=== PATIENT | male | born 1995 | race Caucasian/White ===

== ENCOUNTER 2018-05-11 11:06 | Emergency (ER) | payer BC ==
[2018-05-11 11:40] VITALS: BP 114/79
[2018-05-11] MEDS ORDERED: Ondansetron ODT TAB* 4 MG PO ONE (11:50)
--- NOTE | 2018-05-11 11:50 | UC ---
UC General HPI - HPI Summary HPI Summary: Coughed up blood last pm while having a cough with congestion and wheezing. Hx asthma, now better with rescue inhaler. episodic diarrhea for 3 weeks, on for a few days then resolves for a few days. no blood or mucous. no travel hx, IBD, sick contacts or antibiotic use. gets sharp crampy abdominal pains before the watery diarrhea. resolves with the diarrhea. last pm had n/v as well. - History of Current Complaint Chief Complaint: UCGI Stated Complaint: VOMITING/STOMACH COMPLAINT Time Seen by Provider: 05/11/18 11:30 Hx Obtained From: Patient Pain Intensity: 7 Aggravating: nothing Alleviating: nothing Associated Signs & Symptoms: Positive: Abdominal Pain, Cough, Diarrhea, Nausea, Vomiting. Negative: Fever - Allergy/Home Medications Allergies/Adverse Reactions: Allergies Allergy/AdvReac Type Severity Reaction Status Date / Time No Known Allergies Allergy Verified 05/11/18 11:38 Home Medications: Home Medications Albuterol HFA INHALER* [Ventolin HFA Inhaler*] 1 puff INH Q4H PRN 05/11/18 [ History Confirmed 05/11/18] Albuterol inh POWDER (NF) [Proair Respiclick] 1 puff INH DAILY 05/11/18 [ History Confirmed 05/11/18] Cetirizine* [ZyrTEC 10 MG TAB*] 10 mg PO DAILY 05/11/18 [History Confirmed 05/11] PMH/Surg Hx/FS Hx/Imm Hx - Additional Past Medical History Additional PMH: allergies, chronic joint pain Respiratory History: Asthma - Surgical History Surgical History: Yes Surgery Procedure, Year, and Place: DOUBLE HERNIA REPAIR - Family History Known Family History: Positive: None - Social History Occupation: Employed Full-time Alcohol Use: Occasionally Substance Use Type: None Smoking Status (MU): Never Smoked Tobacco - Immunization History Most Recent Influenza Vaccination: NONE FOR 2014 Review of Systems Constitutional: Negative Skin: Negative Eyes: Negative ENT: Negative Respiratory: Cough Cardiovascular: Negative Gastrointestinal: Abdominal Pain, Vomiting, Diarrhea, Nausea Genitourinary: Negative Motor: Negative Neurovascular: Negative Musculoskeletal: Negative Neurological: Negative Psychological: Negative Is Patient Immunocompromised?: No All Other Systems Reviewed And Are Negative: Yes Physical Exam Triage Information Reviewed: Yes Appearance: Well-Appearing Vital Signs: Initial Vital Signs Temp 98.7 F 05/11/18 11:33 Pulse 77 05/11/18 11:33 Resp 15 05/11/18 11:33 BP 114/79 05/11/18 11:33 Pulse Ox 100 05/11/18 11:33 Vital Signs Reviewed: Yes Eyes: Positive: Conjunctiva Clear ENT: Positive: Pharynx normal, TMs normal. Negative: Nasal congestion, Nasal drainage Neck: Positive: Supple, Nontender, No Lymphadenopathy Respiratory: Positive: Lungs clear, Normal breath sounds Cardiovascular: Positive: RRR, No Murmur Abdomen Description: Positive: Nontender, No Organomegaly, Soft. Negative: Bruit, CVA Tenderness (R), CVA Tenderness (L), Distended, Guarding Bowel Sounds: Positive: Present Musculoskeletal: Positive: ROM Intact, No Edema Neurological: Positive: Alert Psychological: Positive: Age Appropriate Behavior Skin Exam: Normal Skin: Negative: rashes Diagnostics - Radiology No standard instances Radiology Interpretation Completed By: Radiologist - CXR=NO ACTIVE CARDIOPULMONARY DISEASE. Course/Dx - Course Course Of Treatment: non toxic, no acute abdomen. no indication for ER transfer. No concern for travelers diarrhea or c-diff colitis. No hx of IBD; however, given the episodic diarrhea x 3 weeks, pt is going to require close f/ u with his pcp for recheck and ongoing evaluation to which he agrees. CXR= unremarkable, no recurrent blood in sputum and upon additional hx pt not certain blood was from his lungs. No concern for TB. - Differential Dx - Multi-Symptom Provider Diagnoses: Vomiting. Diarrhea. Hemoptysis Discharge - Sign-Out/Discharge Documenting (check all that apply): Patient Departure All imaging exams completed and their final reports reviewed: No Studies - Discharge Plan Condition: Stable Disposition: HOME Patient Education Materials: Hemoptysis (ED), Acute Nausea and Vomiting (ED), Acute Diarrhea (ED) Referrals: Birdie Key MD [Primary Care Provider] - As Soon As Possible - Billing Disposition and Condition Condition: STABLE Disposition: Home
--- NOTE | 2018-05-11 12:18 | RAD ---
HISTORY: cough, coughed up blood COMPARISONS: January 18, 2008 VIEWS: 4: Frontal dual-energy and lateral views of the chest. FINDINGS: CARDIOMEDIASTINAL SILHOUETTE: The cardiomediastinal silhouette is normal. THONY: The thony are normal. PLEURA: The costophrenic angles are sharp. No pleural abnormalities are noted. LUNG PARENCHYMA: The lungs are clear. ABDOMEN: The upper abdomen is clear. There is no subphrenic gas. BONES AND SOFT TISSUES: No bone or soft tissue abnormalities are noted. OTHER: None. IMPRESSION: NO ACTIVE CARDIOPULMONARY DISEASE.
== END 2018-05-11 12:46 | disposition home or self-care (01) ==
LOC: UCCORT 11:06
DX: R04.2 Hemoptysis (principal); R11.2 Nausea with vomiting, unspecified; R19.7 Diarrhea, unspecified; J45.909 Unspecified asthma, uncomplicated
CPT/HCPCS: 71046; 99211; A9270-GY; G0463

== ENCOUNTER 2018-06-09 17:40 | Emergency (ER) | payer BC ==
[2018-06-09 18:49] VITALS: BP 132/84
--- NOTE | 2018-06-09 19:21 | UC ---
Hand/Wrist HPI - HPI Summary HPI Summary: Patient presents complaining of a bump to the back of his left wrist for approximately the past 7 years. He states that the discomfort at the area comes and goes. He demonstrates when he flexes the wrist it is most uncomfortable and the bump is most noticeable. He states that he had followed up with an individual years ago was diagnosed with a ganglionic cyst but was unable to schedule an appointment to get it removed. He states that 2 years ago he accidentally bumped the area and believes that he ruptured it and it seemed much improved; however, over the past 6 months seems to have recurred. - History Of Current Complaint Chief Complaint: UCGeneralIllness Stated Complaint: LEFT WRIST - POSSIBLE CYST Time Seen by Provider: 06/09/18 18:48 Hx Obtained From: Patient Pain Intensity: 1 - Allergies/Home Medications Allergies/Adverse Reactions: Allergies Allergy/AdvReac Type Severity Reaction Status Date / Time No Known Allergies Allergy Verified 06/09/18 18:37 Home Medications: Home Medications Fluticasone DISKUS 100 MCG(NF) [Flovent Diskus 100 MCG(NF)] 1 puff DAILY [History Confirmed 06/09/18] PMH/Surg Hx/FS Hx/Imm Hx - Additional Past Medical History Additional PMH: arthralgia Respiratory History: Asthma - Surgical History Surgical History: Yes Surgery Procedure, Year, and Place: DOUBLE HERNIA REPAIR - Family History Known Family History: Positive: None - Social History Occupation: Employed Full-time Alcohol Use: Occasionally Substance Use Type: None Smoking Status (MU): Never Smoked Tobacco - Immunization History Most Recent Influenza Vaccination: NONE FOR 2014 Most Recent Tetanus Shot: UTD Vaccination Up to Date: Yes Review of Systems Constitutional: Negative Skin: Negative Eyes: Negative ENT: Negative Respiratory: Negative Cardiovascular: Negative Gastrointestinal: Negative Genitourinary: Negative Motor: Negative Neurovascular: Negative Musculoskeletal: Other: - pain L wrist Neurological: Negative Psychological: Negative Is Patient Immunocompromised?: No All Other Systems Reviewed And Are Negative: Yes Physical Exam Triage Information Reviewed: Yes Appearance: Well-Appearing Vital Signs: Initial Vital Signs Temp 98.2 F 06/09/18 18:38 Pulse 77 06/09/18 18:38 Resp 16 06/09/18 18:38 BP 132/84 06/09/18 18:38 Pulse Ox 100 06/09/18 18:38 Vital Signs Reviewed: Yes Eyes: Positive: Conjunctiva Clear ENT: Positive: Normal ENT inspection Neck: Positive: Supple, Nontender Respiratory: Positive: Lungs clear, Normal breath sounds Cardiovascular: Positive: RRR, No Murmur Abdomen Description: Positive: Nontender, No Organomegaly, Soft Bowel Sounds: Positive: Present Musculoskeletal: Positive: Other: - LUE: Shoulder and elbow without deformity or tenderness. Inspection of the wrist in the neutral position shows no gross deformity swelling or discoloration; however, when patient flexes at the wrist there is an area of swelling to the dorsal central wrist. The area is tender drip to palpation but feels firm and noncystic. The rest of the wrist is nontender. The hand is nontender and has full sensorivascular motor function. Neurological: Positive: Alert Psychological: Positive: Age Appropriate Behavior Skin Exam: Normal Diagnostics - Radiology No standard instances Xray Interpretation: No Acute Changes - wet read L wrist Hand/Wrist Course/Dx - Course Course Of Treatment: no concern for acute fx. given duration of discomfort, will refer to hand. - Differential Dx/Diagnosis Provider Diagnoses: L dorsal wrist swelling/pain Discharge - Sign-Out/Discharge Documenting (check all that apply): Patient Departure All imaging exams completed and their final reports reviewed: No - Discharge Plan Condition: Stable Disposition: HOME Patient Education Materials: Ganglion Cysts (ED) Referrals: Zoraida Schmidt MD [Medical Doctor] - As Soon As Possible Additional Instructions: DIAGNOSIS: LEFT DORSAL WRIST PAIN/SWELLING. WEAR THE SPLINT FOR COMFORT. - Billing Disposition and Condition Condition: STABLE Disposition: Home
--- NOTE | 2018-06-10 07:17 | RAD ---
INDICATION: Dorsal LEFT wrist pain and swelling. Possible cyst. COMPARISON: No relevant prior exams available on the [facility]. TECHNIQUE: AP, lateral, and oblique views LEFT wrist. REPORT: Mild diastases and dorsal subluxation at the distal radioulnar joint is concerning for potential injury involving the triangular fibrocartilage. No cortical disruption or suspicious trabecular irregularity to suggest fracture. Unremarkable soft tissue contours. IMPRESSION: #. Potential abnormality involving the triangular fibrocartilage complex given noted malalignment at the distal radioulnar joint. Correlate with clinical assessment and consider MRI for further evaluation if deemed appropriate. R2
--- NOTE | 2018-06-10 08:12 | UC ---
- EKG/XRAY/CT Xray Comments: wet read did not note possible TFCC injury-pt referred to hand specialist Discharge - Sign-Out/Discharge Documenting (check all that apply): Post-Discharge Follow Up All imaging exams completed and their final reports reviewed: Yes - Discharge Plan Condition: Stable Disposition: HOME Patient Education Materials: Ganglion Cysts (ED) Referrals: Zoraida Schmidt MD [Medical Doctor] - As Soon As Possible Additional Instructions: DIAGNOSIS: LEFT DORSAL WRIST PAIN/SWELLING. WEAR THE SPLINT FOR COMFORT. - Billing Disposition and Condition Condition: STABLE Disposition: Home
== END 2018-06-09 20:08 | disposition home or self-care (01) ==
LOC: UCCORT 17:40
DX: M25.432 Effusion, left wrist (principal); M25.532 Pain in left wrist
CPT/HCPCS: 99212; G0463

== ENCOUNTER 2018-06-25 08:12 | Day surgery (SDC) | payer BC ==
--- NOTE | 2018-06-21 12:23 | HP ---
AMENDED REPORT NOW INCLUDES COSIGNER DESIGNATION PREOPERATIVE HISTORY AND PHYSICAL: DATE OF SURGERY/ADMISSION: 06/25/18 DATE OF OFFICE VISIT/ENCOUNTER: 06/17/18 ATTENDING SURGEON: Zoraida Schmidt MD* (dictated by ARNULFO Murphy). PROCEDURE: Ganglion cyst excision, left wrist. CHIEF COMPLAINT: Cyst, left wrist. HISTORY OF PRESENT ILLNESS: This is a 22-year-old male who complains of a lump on the dorsal aspect of his left wrist. It has been present for over 8 years. Several years ago, he accidentally hit it on something and it ruptured and was not bothersome at all until about 6 months ago when it returned, it is now quite painful for him. He had x-rays taken and there was no evidence of bony injury. He has been wearing a brace which is a little bit helpful. He denies any associated numbness or tingling. He would like to have the cyst surgically excised. PAST MEDICAL HISTORY: 1. Asthma. 2. Seasonal allergies. PAST SURGICAL HISTORY: Double hernia repair at age 7 months. CURRENT MEDICATIONS: 1. OTC allergy med p.r.n. 2. Symbicort. 3. Ventolin inhaler 2 puffs 4 times a day p.r.n. ALLERGIES: No known drug allergies. FAMILY MEDICAL HISTORY: Noncontributory. 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 He denies tobacco use and recreational drug use. He does drink alcohol on rare occasion. REVIEW OF SYSTEMS: Negative for general, cephalic, cardiovascular, respiratory , GI, , other musculoskeletal, integumentary, endocrine, neurologic, and hematologic symptoms. Infectious Disease is negative MRSA, hepatitis C, HIV. PHYSICAL EXAMINATION GENERAL: Well-developed, well-nourished 22-year-old male, in no acute distress. VITAL SIGNS: Height 6 feet 10 inches, weight 210 pounds. Blood pressure 118/ 74. HEENT: Normocephalic, atraumatic. Pupils are equal, round, and reactive to light and accommodation. Extraocular movements are intact. Throat is clear. NECK: Supple. No palpable lymph nodes. PULMONARY: Lungs are clear to auscultation bilaterally. No wheezes, rales, or rhonchi. CARDIOVASCULAR: Regular rate and rhythm. S1 and S2. No murmurs, rubs, or gallops. No edema. ABDOMEN: Positive bowel sounds. Soft, nontender. MUSCULOSKELETAL: On exam of his left wrist, he has a tender mass on the dorsal aspect of the wrist that is firm, subcutaneous, and mobile. It is approximately about 1 cm in diameter. He has decreased range of motion in the left wrist compared to the right in flexion and extension secondary to pain. NEUROLOGIC: Alert and oriented x3. Cranial nerves II through XII are intact. Sensation is intact to light touch. Neurovascular function is intact. SKIN: Intact. IMAGING STUDIES: X-rays AP, lateral, and oblique of the left wrist are unremarkable. IMPRESSION: Left wrist dorsal ganglion cyst. PLAN: The patient is scheduled to undergo a ganglion cyst excision left wrist with Dr. Schmidt on 06/25/18. He will return to the office 10 days postop for followup and suture removal. A prescription for Ultracet was e-scribed to the patient's pharmacy for postoperative pain management. ARNULFO MURPHY [id number]/[facility] #: [id number] BETTE
[~2018-06-25 08:12] MED LIST: Buffered Lidocaine 0.9% SYRIN* 5 ML/SYR SYRINGE INTRADERM ONE; Famotidine IV* 10 MG/ML 2 ML (20 mg) IV ONE
[2018-06-25] MEDS ORDERED: Famotidine IV* 10 MG/ML 2 ML (20 mg) ONE (08:43)
[2018-06-25] MEDS ORDERED: Naloxone* 0.4 MG/ML 1 ML VIAL IV PRN (09:03)
[2018-06-25] MEDS ORDERED: Acetaminophen TAB* 325 MG PO PRN (09:03)
[2018-06-25] MEDS ORDERED: DiMENhydriNATE IV* 50 MG/ML VIAL IV PUSH PRN (09:03)
[2018-06-25] MEDS ORDERED: Midazolam* 1 MG/ML 5 ML VIAL (5 MG) ONE (09:36)
[2018-06-25] MEDS ORDERED: fentaNYL* 50 MCG/ML 2 ML VIAL (100 MCG VIAL) ONE (09:36)
[2018-06-25] MEDS ORDERED: Lidocaine 2% PF * 5 ML VIAL ONE (09:37)
[2018-06-25] MEDS ORDERED: Ketorolac INJ* 30 MG/ML 1 ML VIAL ONE (09:37)
[2018-06-25] MEDS ORDERED: Ondansetron INJ* 2 MG/ML VIAL ONE (09:37)
[2018-06-25] MEDS ORDERED: Propofol* 10 MG/ML 20 ML BTL IV PUSH ONE (09:37)
[2018-06-25] MEDS ORDERED: Lidocaine 1% INJ* 10 MG/ML 30 ML SDV ONE (10:02)
[2018-06-25 11:19] VITALS: BP 107/76
--- NOTE | 2018-06-26 03:47 | OP ---
DATE OF OPERATION: 06/25/18 [facility] DATE OF : 89 SURGEON: Dr. Schmidt. RELAY DISPATCHER: ARNULFO Murphy ANESTHESIA: Local MAC. PRE-OP DIAGNOSIS: Left wrist ganglion. POST-OP DIAGNOSIS: Left wrist ganglion. OPERATIVE PROCEDURE: Removal of dorsal ganglion, left wrist. ESTIMATED BLOOD LOSS: Zero. TOURNIQUET TIME: Approximately 15 minutes. INDICATIONS FOR PROCEDURE: James is a 22-year-old male with a painful mass on the dorsal aspect of his left wrist. He presents for removal. DESCRIPTION OF PROCEDURE: The patient was brought to the operating room, was given a sedation anesthetic and a local infiltration of 10 cc of 1% plain lidocaine overlying the mass on his left wrist. Skin of his left upper extremity was prepped and draped in the usual sterile fashion. The hand and forearm were exsanguinated and the tourniquet elevated to 250 mmHg. A transverse incision was made centered over the mass. We dissected bluntly through the subcutaneous tissue down to the ganglion cyst. The extensor tendons were retracted by the surgical coder, Anne-Marie Nuñez, and then the wrist ganglion was carefully dissected down to the wrist joint capsule and removed with a portion of the wrist capsule. The stalk was evident emanating from the scapholunate ligament. The edges of the capsule and the superficial portion of the scapholunate ligament were cauterized with a Bovie. The wounds was irrigated, and the skin edges were reapproximated with 4-0 nylon suture. The wound was dressed with Xeroform, 4x4, Webril, and an Damon wrap. The patient tolerated the procedure well and was brought to the recovery room in good condition. [id number]/[facility] #: [id number] [facility]
== END 2018-06-25 11:36 | disposition home or self-care (01) ==
LOC: OREAST 08:12
PROVIDERS: ATTEND Orthopaedic Surgery
DX: M67.432 Ganglion, left wrist (principal); J45.909 Unspecified asthma, uncomplicated; J30.2 Other seasonal allergic rhinitis; F41.8 Other specified anxiety disorders
CPT/HCPCS: 88304; J1885; J2250; J2405; J2704; J3010

== ENCOUNTER 2019-02-08 18:58 | Emergency (ER) | payer BC ==
[2019-02-08 19:24] VITALS: BP 165/97
--- NOTE | 2019-02-08 19:42 | UC ---
UC General HPI - HPI Summary HPI Summary: 23-year-old male comes in with a chief complaint of sudden onset left-sided facial pain. Started suddenly about an hour ago. Patient is having a hard time describing where the pain is. He was not chewing when it started. He does not believe it's tooth but he can't tell for sure. Pain is severe. Pain is so bad making him nauseous. He's taken acetaminophen 1 g and also ibuprofen 800 mg without any relief. No weakness or numbness. Has not had this kind of pain in the past. - History of Current Complaint Chief Complaint: UCGeneralIllness Stated Complaint: FACIAL PAIN Time Seen by Provider: 02/08/19 19:31 Pain Intensity: 10 - Allergy/Home Medications Allergies/Adverse Reactions: Allergies Allergy/AdvReac Type Severity Reaction Status Date / Time banana Allergy THROAT AND Verified 02/08/19 19:25 TONGUE SWELL Home Medications: Home Medications Acetaminophen [Acetaminophen Extra Strength] 500 mg PO Q4HR PRN 02/08/19 [ History Confirmed 02/08/19] PMH/Surg Hx/FS Hx/Imm Hx Previously Healthy: Yes - Surgical History Surgical History: Yes Surgery Procedure, Year, and Place: DOUBLE HERNIA REPAIR-AGE 5 MONTHS. LOCAL ANESTHESIA- WISDOM TEETH, left wrist surgery- 06/2018 - Family History Known Family History: Positive: None - Social History Alcohol Use: Rare Substance Use Type: None Smoking Status (MU): Never Smoked Tobacco Have You Smoked in the Last Year: No - Immunization History Most Recent Influenza Vaccination: NONE FOR 2014 Most Recent Tetanus Shot: UTD Vaccination Up to Date: Yes Review of Systems All Other Systems Reviewed And Are Negative: Yes Constitutional: Positive: Negative Skin: Positive: Negative Eyes: Positive: Negative ENT: Positive: Other - SEE HPI Respiratory: Positive: Negative Cardiovascular: Positive: Negative Gastrointestinal: Positive: Nausea Motor: Positive: Negative Neurovascular: Positive: Negative Musculoskeletal: Positive: Negative Neurological: Positive: Other - SEE HPI Psychological: Positive: Negative Is Patient Immunocompromised?: No Physical Exam Triage Information Reviewed: Yes Appearance: Well-Appearing, Well-Nourished, Pain Distress - MODERATE Vital Signs: Initial Vital Signs Temp 98.1 F 02/08/19 19:19 Pulse 87 02/08/19 19:19 Resp 16 02/08/19 19:19 BP 165/97 02/08/19 19:19 Pulse Ox 100 06/04/19 19:19 Vital Signs Reviewed: Yes Eye Exam: Normal Eyes: Positive: Conjunctiva Clear ENT: Positive: Pharynx normal, TM red - LEFT, Uvula midline, Other - NO TRAGUS TENDERNESS. The patient is holding the left side of his face. He is tender on the left side of the face from the TMJ over the parotid into the left cheek. There is no rash. Teeth are nontender to palpation. The left TM was a little bit red but did not appear to be bulging. Dental: Negative: Percussion Tenderness @ Neck: Positive: Supple Respiratory: Positive: No respiratory distress Musculoskeletal: Positive: Strength Intact, ROM Intact Neurological: Positive: Alert, Muscle Tone Normal Psychological: Positive: Age Appropriate Behavior Skin Exam: Normal Course/Dx - Course Course Of Treatment: The cause of the left sided facial pain is not clear. Due to the amount of pain the patient was in I recommended further evaluation in the emergency department. Patient declined ambulance transport. I discussed the case with the emergency medicine physician Dr. Perez at [place] emergency department. - Diagnoses Provider Diagnosis: Left-sided face pain Discharge - Sign-Out/Discharge Documenting (check all that apply): Patient Departure All imaging exams completed and their final reports reviewed: No Studies - Discharge Plan Condition: Stable Disposition: HOME-RECOMMEND TO ED Referrals: Birdie Key MD [Primary Care Provider] - - Billing Disposition and Condition Condition: STABLE Disposition: Home-Recommend to ED
== END 2019-02-08 19:45 | disposition home health service (06) ==
LOC: UCCORT 18:58
DX: R51 Headache (principal)
CPT/HCPCS: 99212; G0463

== ENCOUNTER 2019-03-23 12:54 | Emergency (ER) | payer BC, OTHER ==
[2019-03-23 13:40] VITALS: BP 124/75
--- NOTE | 2019-03-23 13:41 | UC ---
Back Pain HPI - HPI Summary HPI Summary: 23-year-old male comes in with a chief complaint of low back pain. Patient's had intermittent back pain in the past. Yesterday while at work he was lifting and bending and had sudden onset of low back pain. Pain is located in the lumbar area. Denies radiation down into the legs. Denies weakness or numbness or difficulty controlling urine or bowels. Pain is worse with bending twisting turning. He did take ibuprofen which is only helped minimally. - History of Current Complaint Stated Complaint: WC-BACK PAIN Time Seen by Provider: 03/23/19 13:15 - Allergies/Home Medications Allergies/Adverse Reactions: Allergies Allergy/AdvReac Type Severity Reaction Status Date / Time banana Allergy THROAT AND Verified 03/23/19 13:38 TONGUE SWELL PMH/Surg Hx/FS Hx/Imm Hx Previously Healthy: Yes - Surgical History Surgical History: Yes Surgery Procedure, Year, and Place: DOUBLE HERNIA REPAIR-AGE 5 MONTHS. LOCAL ANESTHESIA- WISDOM TEETH, left wrist surgery- 06/2018 - Family History Known Family History: Positive: None - Social History Alcohol Use: Rare Substance Use Type: None Smoking Status (MU): Never Smoked Tobacco Have You Smoked in the Last Year: No - Immunization History Most Recent Influenza Vaccination: NONE FOR 2014 Most Recent Tetanus Shot: UTD Vaccination Up to Date: Yes Review of Systems All Other Systems Reviewed And Are Negative: Yes Constitutional: Positive: Negative Skin: Positive: Negative Eyes: Positive: Negative ENT: Positive: Negative Respiratory: Positive: Negative Cardiovascular: Positive: Negative Gastrointestinal: Positive: Negative Motor: Positive: Other - SEE HPI Neurovascular: Positive: Negative Musculoskeletal: Positive: Other: - SE HPI Neurological: Positive: Negative Psychological: Positive: Negative Is Patient Immunocompromised?: No Physical Exam Triage Information Reviewed: Yes Appearance: Well-Appearing, Well-Nourished, Pain Distress - MILD WITH ROM Vital Signs Reviewed: Yes Eye Exam: Normal Eyes: Positive: Conjunctiva Clear Neck: Positive: Supple Respiratory: Positive: Lungs clear, Normal breath sounds, No respiratory distress Cardiovascular: Positive: RRR Musculoskeletal: Positive: Other: - Tender to palpation along the spinous processes of the lumbar spine. No extension of tenderness into the sciatic distribution. Both legs have full strength normal sensation. Patellar reflexes 2+ bilaterally. The pain is increased in the back with hip flexion right and left. Neurological: Positive: Alert, Muscle Tone Normal Psychological: Positive: Age Appropriate Behavior Skin Exam: Normal Back Pain Course/Dx - Course Course Of Treatment: Patient has been taking ibuprofen without much relief. Plan is continue the ibuprofen and add Flexeril. Also recommended stretching. He'll be out of work the rest of today. Patient wishes to go back to work. Plan is no lifting more than 10 pounds until March 28, 2019 at work. Patient will follow up with occupational medicine if not completely improved. We discussed getting reevaluated if excessive pain weakness numbness or difficulty controlling urine or bowels. - Differential Dx/Diagnosis Provider Diagnosis: Low back pain Discharge - Sign-Out/Discharge Documenting (check all that apply): Patient Departure All imaging exams completed and their final reports reviewed: No Studies - Discharge Plan Condition: Stable Disposition: HOME Prescriptions: Cyclobenzaprine TAB* [Flexeril 10 MG TAB*] 10 mg PO TID PRN #15 tab MDD 3 PRN Reason: Pain Patient Education Materials: Acute Low Back Pain (ED), Lower Back Exercises (ED ) Forms: *Work Release Referrals: Birdie Key MD [Primary Care Provider] - Jonny Jerez MD [Medical Doctor] - Additional Instructions: FOLLOW UP WITH DR JEREZ, OCCUPATIONAL MEDICINE, IF NOT COMPLETELY IMPROVED. GET REEVALUATED SOONER IF WORSE OR ANY QUESTIONS OR CONCERNS. - Billing Disposition and Condition Condition: STABLE Disposition: Home
== END 2019-03-23 13:53 | disposition home or self-care (01) ==
LOC: UCCORT 12:54
DX: M54.5 Low back pain (principal)
CPT/HCPCS: 99212; G0463